=== PATIENT | female | born 1975 | race Caucasian/White ===

== ENCOUNTER → 2017-01-25 | Outpatient (CLI) | payer OTHER ==
--- NOTE | ~2017-01-25 | EKG ---
[address] [address] ELECTROCARDIOGRAM REPORT Name: TOBI ALVARADO Room #: REG [facility]#: [id number] Admission: 01/25/17 Attend Phys: Vinh Hays MD Discharge: Date of : 71 Report #: [id number] THIS REPORT FOR: //name// [facility] Test Date: 2017-01-25 Test Time: 09:08:13 Pat Name: TOBI ALVARADO Department: Room: Gender: F Hand Picker: rose : 1975 Requested By: Vinh Hays Order Number: [id number] MD: Stuart Woo Measurements Intervals [place] Rate: 60 P: 41 MA: 109 QRS: 63 QRSD: 91 T: 21 QT: 445 QTc: 445 Interpretive Statements Sinus rhythm Short MA interval No previous ECG available for comparison Electronically Signed On 01-26-2017 8:27:26 CDT by Stuart Woo [email or web address] <ELECTRONICALLY SIGNED> By: Stuart Woo MD, [facility] 01/26/17 0827 0908 7 Stuart Woo MD, FACC /EPI
--- NOTE | ~2017-01-25 | 2DMMODE ---
[facility] [address] [place] [address] 2 D/M-MODE ECHOCARDIOGRAM Name: TOBI ALVARADO Room #: REG CL [facility]#: [id number] Admission: 01/25/17 Attend Phys: Vinh Hays MD Discharge: Date of : 71 Date of Service: 01/25/17 1233 Report #: [id number] THIS REPORT FOR: //name// APPROVED REPORT Study performed: 01/25/2017 08:55:46 EXAM: Comprehensive 2D, Doppler, and color-flow Echocardiogram Patient Location: Out-Patient Blood Pressure: 118/70 mmHg HR: 59 bpm Other Information Study Quality: Good Indications Dyspnea Chest Pain 2D Dimensions RVDd: 32.66 mm LVEF(%): 56.14 (>50%) IVSd: 9.61 (7-11mm) LVOT Diam: 18.02 (18-24mm) LVDd: 41.20 mm PWd: 10.18 (7-11mm) Ascending Ao: 25.57 (22-36mm) LVDs: 29.26 (25-40mm) Aortic Root: 29.32 mm IVC: 16.00 mm Valentin's LVEF: 56.14 % Volumes Left Atrial Volume (Systole) Single Plane 4CH: 22.44 mL Single Plane 2CH: 32.75 mL LA ESV Index: 22.00 mL/m2 Aortic Valve AoV Peak Audie.: 1.32 m/s AO Peak Gr.: 6.95 mmHg LVOT Max P.93 mmHg LVOT Max V: 0.99 m/s Mitral Valve E/A Ratio: 1.6 MV Decel. Time: 216.84 ms MV E Max Audie.: 0.82 m/s [facility] [address] [address] 2 D/M-MODE ECHOCARDIOGRAM Name: TOBI ALVARADO Room #: REG [facility]#: [id number] Admission: 01/25/17 Attend Phys: Vnih Hays MD Discharge: Date of : 71 Date of Service: 01/25/17 1233 Report #: [id number] A Audie.: 0.50 m/s MV PHT: 62.88 ms Pulmonary Valve PV Peak Audie.: 0.81 m/s PV Peak Gr.: 2.62 mmHg Pulmonary Vein P Vein S: 49.7 m/s P Vein D: 42.7 m/s P Vein A Dur.: 24.9 m/s Tricuspid Valve TR Peak Audie.: 1.73 m/s RAP Estimate: 5.00 mmHg TR Peak Gr.: 11.99 mmHg Left Ventricle The left ventricle is normal size. There is normal LV segmental wall motion. There is normal left ventricular wall thickness. The left ventricular systolic function is normal. The left ventricular ejection fraction is within the normal range. LVEF is 55-60%. The left ventricular diastolic function is normal. Right Ventricle The right ventricle is normal size. The right ventricular systolic function is normal. Atria The left atrium size is normal. The right atrium size is normal. Aortic Valve The aortic valve is normal in structure. No aortic regurgitation is present. There is no aortic valvular stenosis. Mitral Valve The mitral valve is normal in structure. Trace mitral regurgitation. No evidence of mitral valve stenosis. Tricuspid Valve The tricuspid valve is normal in structure. There is trace tricuspid regurgitation. The right atrial pressure is estimated at 5 mmHg. There is no pulmonary hypertension. The estimated PAP was 17 mmHg. Pulmonic Valve The pulmonary valve is normal in structure. There is no pulmonic valvular regurgitation. [address] [address] 2 D/M-MODE ECHOCARDIOGRAM Name: TOBI ALVARADO Room #: REG CL [facility].#: [id number] Admission: 01/25/17 Attend Phys: Vinh Hays MD Discharge: Date of : 71 Date of Service: 01/25/17 1233 Report #: [id number] Great Vessels The aortic root is normal in size. IVC is normal in size and collapses >50% with inspiration. Pericardium There is no pericardial effusion. <Conclusion> The left ventricle is normal size. LVEF is 55-60%. The aortic valve is normal in structure. The mitral valve is normal in structure. Trace mitral regurgitation. The tricuspid valve is normal in structure. There is trace tricuspid regurgitation. The right atrial pressure is estimated at 5 mmHg. There is no pulmonary hypertension. The estimated PAP was 17 mmHg. There is no pulmonic valvular regurgitation. <ELECTRONICALLY SIGNED> By: Austin Nicole MD 01/25/17 1233 1233 1233 Austin Nicole MD /INF
--- NOTE | ~2017-01-25 | PFR/MVV ---
[facility] [place] [address] [place] [address] PULMONARY FUNCTION MVV/REPORT Name: JENNYTOBI Room #: REG [facility].#: [id number] Admission: 01/25/17 Attend Phys: Vinh Hays MD Discharge: Date of : 71 Report #: [id number] THIS REPORT FOR: //name// >> SPIROMETRY: (BTPS) Height: in cm Weight: lbs kg Exam Date: PRE-RX POST-RX PRED BEST %PRED BEST %PRED %CHG FVC LITERS . . . . . . FEV1 LITERS . . . . . . FEV1/FVC % . . . . . . ADQ87-95% L/Sec . . . . . . PEF L/SEC . . . . . . FEF50/FIF50 UNITLESS . . . . . . MVV L/Min . . . f 1/Min . . . >> LUNG VOLUMES: (BTPS) PRE-RX POST-RX PRED AVG %PRED AVG %PRED %CHG VC Liters . . . . . . TLC Liters . . . . . . RV Liters . . . . . . RV/TLC % . . . . . . FRC PL Liters . . . . . . FRC N2 Liters . . . . . . ERV Liters . . . . . . IC Liters . . . . . . >> DIFFUSION: DLCO ml/Min/mmHg . . . . . . DL Calin ml/Min/mmHg . . . . . . DLCO/VA ml/Min/mmHg . . . . . . VA Liters . . . . . . COMMENTS: COMMENTS: >> RESISTANCE: [facility] [address] [place] [address] PULMONARY FUNCTION MVV/REPORT Name: TOBI ALVARADO [facility] [id number] Admission: 01/25/17 Attend Phys: Vinh Hays MD Discharge: Date of : 71 Report #: [id number] PRE-RX PRED AVG %PRED Raw Total cmH20/L/Sec . . . Raw Insp cmH20/L/Sec . . . Raw Exp cmH20/L/Sec . . . Raw cmH20/L/Sec . . . Gaw L/Sec/cmH20 . . . sRaw cmH20 Sec . . . sGaw l/cmH20 Sec . . . Vtq Liters . . . # = OUTSIDE 95% CONFIDENCE INTERVAL CALIBRATION: PRED: 3.00 ACTUAL: EXP 3.01 [facility]SP 3.02 [facility] [place] [address] N-1804-4 >> INTERPRETATION/IMPRESSION: CC: Vinh SPANGLER physician/PCP PULMONARY FUNCTION STUDY: Spirometry within normal limits; however, note GHR53-93 improved 22% post-bronchodilator. Lung volumes within normal limits. There is a moderate diffusion defect which normalizes with alveolar volume. IMPRESSION: Considerations include possible obstructive disease, early interstitial lung disease, pulmonary vascular disease. Clinical correlation suggested. By: Baldomero Gomes MD /nt
== END ==
LOC: CV 08:41
DX: R07.9 Chest pain, unspecified (principal)